=== PATIENT | female | born 1970 | race Caucasian/White ===

== ENCOUNTER 2023-07-04 15:03 | Emergency (ER) | payer BC, SELFPAY ==
[2023-07-04 15:19] VITALS: BP 119/83; PULSE 73; RESP 16; TEMP 36.9; O2SAT 96
--- NOTE | 2023-07-04 16:00 | DI.RAD_ITS ---
Exam(s) XR SHOULDER RT COMPLETE 2+V EXAM: XR SHOULDER RT COMPLETE 2+V CLINICAL HISTORY: fall, deformity. TECHNIQUE: 2D digital imaging was performed. Two views, portable. COMPARISON: No exams were available for comparison FINDINGS: BONES: No acute fracture is present. No bony destructive lesion is seen. JOINTS: Anterior glenohumeral joint dislocation. SOFT TISSUE: Normal. IMPRESSION: Anterior glenohumeral joint dislocation. DATA REPOSITORY: RADIATION DOSE DELIVERED:
[2023-07-04] MEDS: fentaNYL 100 MCG/2 ML VIAL 50 MCG IVP ×2 (16:14→16:32)
[2023-07-04] MEDS: Normal Saline 1,000 ML 1000 ML IV (16:31)
--- NOTE | 2023-07-04 16:52 | W.ED.GENAD ---
Discharge Plan Disposition Patient Disposition: Home Condition: Stable Discharge Details Clinical Impression: Anterior shoulder dislocation Primary Care Provider: Unknown,Unknown ED Provider: Claudine Sy Home Meds and New Rx's Prescriptions: No Action bupropion HCl [Wellbutrin XL] 150 mg tablet extended release 24 hr 150 mg PO BID Discharge Instructions Instructions: Shoulder Dislocation (ED), Closed Reduction (ED) Additional Instructions: Ice 20 minutes on and 20 minutes off for the next 24 to 72 hours. As directed. Pendulum exercises 6 times per day. Tramadol 50 to 100 mg 4 times a day as needed for pain. You may augment this with Tylenol 650 mg 4 times a day. You may also use ibuprofen 600 mg every 6 hours as needed for pain. Please call the orthopedic surgeon of your choice when you return to [place]. If you do not have any ideas you can call the local emergency department to see who is on-call for that day. He should follow-up with this person within 7 to 10 days. Turn to ED for weakness or numbness in your hand, any other concerns. HPI General Date/Time Provider Initiated Documentation: 07/04/23 15:34. HPI Narrative: This 53-year-old female patient slipped and landed on her right shoulder. She is unable to move it. She states it hurts that time. A doc and some nurses at the tried to put it back in but were unsuccessful. She denies hitting her head. She has no head or neck pain. There was no LOC. She did not hurt anything else. There is no numbness or weakness in her right upper extremity. She reports that the pain is a sharp ache and clarifies that it is 10 out of 10. Related Data Home Medications Medication Instructions Recorded Confirmed bupropion HCl 150 mg 24 hr tablet, 150 mg PO BID 07/04/23 07/04/23 extended release (Wellbutrin XL) Allergies Allergy/AdvReac Type Severity Reaction Status Date / Time No Known Allergies Allergy Unverified 07/04/23 15:23 General Stated Complaint: Orthopedic RAVIN: 4 Review of Systems Narrative: See HPI Exam Narrative Exam Narrative: Uncomfortable white female sitting hunched over, alert and oriented x 3. She is splinting her right arm. Const General: well developed and well groomed HENGA Head: normocephalic and atraumatic Face and sinus: normal facial exam Mouth: oropharynx normal and moist mucous membranes Throat: posterior oropharynx normal Eyes Conjunctivae: conjunctivae normal Neck Neck: full ROM and nontender Chest Chest: normal inspection of the chest Resp Effort & Inspection: normal respiratory effort and able to speak in complete sentences Auscultation: clear to auscultation bilaterally Cardio Rate: regular rate Rhythm: regular rhythm and abnormal rhythm Heart Sounds: no murmurs and no rubs GI Inspection: normal to inspection Palpation: soft and nontender General: other ( Pelvis stable) Skin General skin exam: no rashes or lesions noted and other ( pink, warm, dry) Neuro General: patient alert, patient awake and patient oriented x3 Cognition: normal cognition Speech: speech normal Motor: strength 5/5 throughout (RUE except shoulder which is deformed) Sensory Exam: no sensory deficits noted Extrem General: other (deformity RUE shoulder) Course Vital Signs Vital signs: Vital Signs Temperature 36.9 C 07/04/23 15:19 Pulse 73 07/04/23 15:19 Respiratory Rate 16 07/04/23 15:19 Blood Pressure 119/83 07/04/23 15:19 Pulse Oximetry 96 07/04/23 15:19 Temperature 36.9 C 07/04/23 15:19 Temperature Source Skin 07/04/23 15:19 Pulse 73 07/04/23 15:19 Respiratory Rate 16 07/04/23 15:19 Respiratory Effort Normal, Non-Labored 07/04/23 15:23 Blood Pressure 119/83 07/04/23 15:19 Blood Pressure Position Sitting 07/04/23 15:19 Pulse Oximetry 96 07/04/23 15:19 Oxygen Delivery Method Room Air 07/04/23 15:19 Oxygen Flow Rate 0 07/04/23 15:19 Pain Level 9 07/04/23 16:32 Medical Decision Making Medical Records Medical records reviewed: Yes I reviewed the patient's medical records. Imaging Data Radiologic Study: Imaging: X-Ray ( right shoulder #1. Anterior inferior dislocation of the glenohumeral joint.) My impression: Right shoulder #2. Postreduction with good alignment of the glenohumeral joint. Quality:SDOH Health Related Social Needs: No Data to Display PFSH All Active Problems (Updated 07/04/23 @ 17:59 by Claudine Sy MD) Anterior shoulder dislocation (Acute) Social History Smoking/Tobacco Use Status: Never Smoking risk assessment performed?: Yes Alcohol Intake: never Drug use: Never Substance use type: does not use
[2023-07-04 16:54] VITALS: BP 143/70; PULSE 79; RESP 12; O2SAT 98
--- NOTE | 2023-07-04 16:58 | RESPIRATORY ---
Paged to ED for conscious sedation. Patient's pre-sedation vitals HR 75, RR 14, EtCO2 30, SpO2 100% on RA. Ambu bag set-up and flow turned to 15L, NC with capnography placed on patient and nasal trumpet/oral airway at bedside. Patient placed on 3L NC to maintain SpO2 >92% during procedure. SpO2 dropped to 80% with minimal respiratory effort due to sedation- O2 flow maxed and patient bagged temporarily with jaw thrust. RT able to titrate O2 back to RA within 5 mins post procedure with SpO2 99% on RA, RR 18, Etco2 36 and HR 84.
[2023-07-04] MEDS: ACETAMINOPHEN 1,000 MG/100 ML BTL 400 MG IVPB (17:13)
--- NOTE | 2023-07-04 17:15 | DI.VRAD_ITS ---
PROCEDURE INFORMATION: Exam: XR Right Shoulder Exam date and time: 07/04/2023 4:14 PM Age: 53 years old Clinical indication: Other: Fall, deformity TECHNIQUE: Imaging protocol: Radiologic exam of the right shoulder. Views: 2 or more views. COMPARISON: No relevant prior studies available. FINDINGS: Bones/joints: Anterior inferior dislocation of the glenohumeral joint. No definitive fracture on current evaluation. Soft tissues: Soft tissues are unremarkable as visualized. IMPRESSION: 1. Anterior inferior humeral head dislocation. 2. No definitive fracture on current two-view study. Dictated and Authenticated by: Maxi Swain MD. Ordering:KACIE Chow MD
--- NOTE | 2023-07-04 17:15 | DI.RAD_ITS ---
Exam(s) XR SHOULDER RT COMPLETE 2+V EXAM: XR SHOULDER RT COMPLETE 2+V CLINICAL HISTORY: post reduction view. TECHNIQUE: 2D digital imaging was performed. Two views. Portable COMPARISON: CR,XR XR SHOULDER RT COMPLETE 2+V from 07/04/2023 FINDINGS: BONES: No acute fracture is present. No bony destructive lesion is seen. JOINTS: No dislocation present. Previously noted shoulder dislocation has been reduced. SOFT TISSUE: Normal. IMPRESSION: Satisfactory reduction of previously noted glenohumeral joint dislocation. No visible fracture. DATA REPOSITORY: RADIATION DOSE DELIVERED:
--- NOTE | 2023-07-04 17:34 | DI.VRAD_ITS ---
PROCEDURE INFORMATION: Exam: XR Right Shoulder Exam date and time: 07/04/2023 5:20 PM Age: 53 years old Clinical indication: Other: Shoulder dislocation, post reduc TECHNIQUE: Imaging protocol: Radiologic exam of the right shoulder. Views: 2 or more views. COMPARISON: CR XR SHOULDER RT COMPLETE 2+V 07/04/2023 4:14 PM FINDINGS: Bones/joints: Status post reduction with well-aligned glenohumeral joint. No evidence of fracture. Soft tissues: Unremarkable soft tissues. IMPRESSION: 1. Post reduction with good alignment of glenohumeral joint. 2. No fracture evident. Dictated and Authenticated by: Maxi Swain MD. Ordering:KACIE Chow MD
== END 2023-07-04 18:28 | disposition home or self-care (01) ==
PROVIDERS: Emergency Provider Emergency Medicine
DX: W10.8XXA Fall (on) (from) other stairs and steps, initial encounter; S43.014A Anterior dislocation of right humerus, initial encounter
CPT/HCPCS: 23655; 96365; 96375; 99152; 99284; 73030; 99283; J0131; J3010